=== PATIENT | female | born 1965 | race Caucasian/White ===

== ENCOUNTER 2017-07-20 17:40 | Emergency (ER) | END 2017-07-20 18:32 | disposition home or self-care (01) ==

== ENCOUNTER 2017-10-02 10:23 | Emergency (ER) | END 2017-10-02 11:10 | disposition home or self-care (01) ==

== ENCOUNTER 2018-01-07 16:16 | Emergency (ER) | END 2018-01-07 17:15 | disposition left against medical advice (07) ==

== ENCOUNTER 2018-03-13 03:14 | Inpatient (IN) | END 2018-03-14 11:05 | disposition home or self-care (01) | DRG 916 ==

== ENCOUNTER 2018-11-10 04:53 | Emergency (ER) | payer OTHER ==
[~2018-11-10] VITALS: Ht 170.2 cm; Wt 72.3 kg
[~2018-11-10 04:53] MED LIST: BEN25 PO; BEN50 PO; EPIN0.3P4 IM; HYDR120L2 TP; MED4DP PO; PRED20TA PO
[2018-11-10 04:56] VITALS: BP 124/60; PULSE 81; RESP 17; Ht 170.2 cm; Wt 72.3 kg
[2018-11-10] MEDS ORDERED: METHYLPREDNISOLONE 125 MG INJ IM ONE (05:30)
[2018-11-10] MEDS ORDERED: DIPHENHYDRAMINE 50 MG CAP PO ONE (05:30)
[2018-11-10] MEDS ORDERED: DIPHENHYDRAMINE 50 MG INJ ONE (05:56)
== END 2018-11-10 05:45 | disposition home or self-care (01) ==
LOC: FTE 04:53
DX: R21 Rash and other nonspecific skin eruption (principal); Z91.010 Allergy to peanuts
CPT/HCPCS: 96372; J1200; J2930; Z7502

== ENCOUNTER 2018-11-11 02:56 | Emergency (ER) | payer OTHER ==
[~2018-11-11] VITALS: Ht 170.2 cm; Wt 71.1 kg
[2018-11-11 03:02] VITALS: Ht 170.2 cm; Wt 71.1 kg
[2018-11-11] MEDS ORDERED: FAMOTIDINE 20 MG INJ IV STA (03:27)
[2018-11-11] MEDS ORDERED: METHYLPREDNISOLONE 125 MG INJ IV STA (03:27)
[2018-11-11] MEDS ORDERED: DIPHENHYDRAMINE 50 MG INJ IV STA (03:27)
--- NOTE | 2018-11-11 03:51 | ERD ---
ER Documentation Chief Complaint Chief Complaint RASHES; ITCHING; AIRWAY PATENT HPI This is a 53-year-old female here for allergic reaction. The patient was seen here yesterday and had a rash and was given medication was doing better. She does have a sensitivity to shellfish but has been having nuts lately. She said that tonight she got the rash again on her face trunk back that is itchy with hives. No swelling of the face tongue or throat no respiratory distress or difficulty swallowing. ROS All systems reviewed and are negative except as per history of present illness. Medications Home Meds Active Scripts Diphenhydramine Hcl* (Benadryl*) 25 Mg Cap, 25 MG PO Q6 PRN for ITCHING/RASH, #30 TAB Prov:SAVANNA NEELY DO 11/11/18 Prednisone* (Prednisone*) 20 Mg Tab, 60 MG PO DAILY for 4 Days, TAB Prov:SAVANNA NEELY DO 11/11/18 Hydrocortisone (Hydrocortisone) 114 Gm Lotion, 114 GM TP TID for 5 Days, BOTTLE Prov:SWATHI GUZMAN PA-C 11/10/18 Diphenhydramine Hcl* (Benadryl*) 50 Mg Cap, 50 MG PO Q6H PRN for ITCHING/RASH, #30 CAP Prov:SWATHI GUZMAN PA-C 11/10/18 Methylprednisolone* (Medrol* DOSE PACK) 4 Mg/Dose-Pack Tab.ds.pk, 4 MG PO . DIRECTED for 5 Days, PACKET Prov:SWATHI GUZMAN PA-C 11/10/18 Epinephrine (Epipen 2-Steven) 0.3 Mg/0.3 Ml Pen.injctr, 1 MG IM DIRECTED PRN for ALLERGIC REACTION, #1 EA Prov:MAHI LO MD 03/14/18 Diphenhydramine Hcl* (Benadryl*) 25 Mg Cap, 25 MG PO Q6H PRN for ITCHING for 14 Days, CAP Prov:MAHI LO MD 03/14/18 Methylprednisolone* (Medrol* DOSE PACK) 4 Mg/Dose-Pack Tab.ds.pk, 4 MG PO . DIRECTED for 3 Days, PACKET Prov:MAHI LO MD 03/14/18 Allergies Allergies: Coded Allergies: peanut (Verified Allergy, Unknown, 11/11/18) Uncoded Allergies: SEAFOOD (Allergy, Unknown, 11/10/18) PMhx/Soc Medical and Surgical Hx: pt denies Medical Hx History of Surgery: Yes (carpal tunnel bilateral 2016 & 2017) Anesthesia Reaction: No Hx Neurological Disorder: No Hx Respiratory Disorders: No Hx Cardiac Disorders: No Hx Psychiatric Problems: No Hx Miscellaneous Medical Probl: No Hx Alcohol Use: No Hx Substance Use: No Hx Tobacco Use: No Smoking Status: Never smoker FmHx Family History: No coronary disease Physical Exam Vitals Vital Signs Date Temp Pulse Resp B/P (MAP) Pulse Ox O2 O2 Flow FiO2 Time Delivery Rate 11/11/18 98.3 78 19 123/58 99 Room Air 03:16 (79) 11/11/18 98.3 65 19 123/58 99 03:02 (79) Physical Exam Const: Well-developed, well-nourished Head: Atraumatic, normocephalic Eyes: Normal Conjunctiva, PERRLA, EOMI, normal sclera, no nystagmus ENT: Normal External Ears, Nose and Mouth, moist mucus membranes. Neck: Full range of motion. No meningismus, no lymphadenopathy. Resp: Clear to auscultation bilaterally, no wheezing, rhonchi, rales Cardio: Regular rate and rhythm, no murmurs, S1 S2 present Abd: Soft, non tender x 4, non distended. Normal bowel sounds, no guarding or rebound, no pulsitile abdominal masses or bruits Skin: Diffuse hives to the back trunk arms Back: No midline or flank tenderness Ext: No cyanosis, or edema, FROM x 4, normal inspection, neurovas cularly intact x 4 Neur: Awake and alert, STR 5/5 x 4, sensation intact x 4, no focal findings, cerebellum intact Psych: Normal Mood and Affect Results 24 hrs Current Medications Medications Dose Sig/Sary Start Time Status Last (Trade) Ordered Route PRN Stop Time Admin Dose Reason Admin 25 mg ONCE STAT 11/11/18 DC Diphenhydrami IV 03:27 11/11/18 ne HCl 03:40 (Benadryl) Famotidine 20 mg ONCE STAT 11/11/18 DC (Pepcid Iv) IV 03:27 11/11/18 03:40 125 mg ONCE STAT 11/11/18 DC Methylprednis IV 03:27 11/11/18 olone Sodium 03:40 Succinate (Solu-Medrol) Procedures/MDM Patient received IV Benadryl Solu-Medrol and Pepcid. I discussed the patient to avoid the common food allergies as well as possible allergy/sensitivity to fragrance or perfume at her house and to rewash everything in a new detergent Departure Diagnosis: Primary Impression: Allergic reaction Encounter type: initial encounter Qualified Codes: T78.40XA - Allergy, unspecified, initial encounter Condition: Stable Patient Instructions: Allergic Reaction, Drug SAVANNA NEELY DO Nov 11, 2018 03:51
[2018-11-11 04:36] VITALS: BP 126/72; PULSE 56; RESP 16
== END 2018-11-11 04:56 | disposition home or self-care (01) ==
LOC: E/R 02:56
DX: L50.0 Allergic urticaria (principal); Z91.010 Allergy to peanuts
CPT/HCPCS: 96374; 96375; J1200; J2930; Z7502; Z7610